=== PATIENT | female | born 1980 | race African-American/Black ===

== ENCOUNTER 2016-12-21 16:08 | Emergency (ER) | payer OTHER ==
[~2016-12-21] VITALS: Ht 162.6 cm; Wt 80.0 kg
[~2016-12-21 16:08] MED LIST: BENZ2 PO; DIVA250T8 PO; GLUCTAB PO; HALO1TAB PO; HYDR50TA94 PO; LACT20SO4 PO; MIRT15TA2 PO; ZYPR20TA PO
[2016-12-21 16:16] VITALS: BP 148/99; PULSE 130; RESP 20; TEMP 98.2; O2SAT 95
[2016-12-22] MEDS ORDERED: PROM6.256 PO (09:23)
[2016-12-22] MEDS ORDERED: GLUCTAB PO (13:12)
[2016-12-28] MEDS ORDERED: BENZ100 PO (12:33)
[2017-01-11] MEDS ORDERED: GUAI100S5 PO (08:14)
== END 2016-12-21 17:43 | disposition left against medical advice (07) ==
LOC: NED 16:08
DX: R06.00 Dyspnea, unspecified (principal); Z53.21 Procedure and treatment not carried out due to patient leaving prior to being seen by health care provider
CPT/HCPCS: 99281

== ENCOUNTER 2017-12-13 16:42 | Emergency (ER) | payer OTHER ==
[~2017-12-13 16:42] MED LIST changes: +ALBU0.08 NEB; +BENZ100 PO; +CLAR10CA3 PO; -DIVA250T8 PO; +FLUT1SPR5 EACH NARE; -HYDR50TA94 PO; -LACT20SO4 PO; +NEBULIZER1 MI1; +OCEA0.653 EACH NARE
[2017-12-13 16:43] VITALS: BP 162/92; PULSE 138; RESP 26; TEMP 97.8; O2SAT 98
--- NOTE | 2017-12-13 17:22 | RADRPT ---
EXAM DATE/TIME: 12/13/2017 17:12 [place] COMPARISON: No previous studies available for comparison. INDICATIONS : Cough. MEDICAL HISTORY : None. SURGICAL HISTORY : None. ENCOUNTER: Initial ACUITY: 1 week PAIN SCORE: 0/10 LOCATION: Bilateral chest FINDINGS: PA and lateral views of the chest demonstrate the lungs to be symmetrically aerated without evidence of mass, infiltrate or effusion. The cardiomediastinal contours are unremarkable. Osseous structure s are intact. CONCLUSION: 1. No acute cardiopulmonary findings identified. Carroll Garrett MD on December 13, 2017 at 17:19 Board Certified Radiologist. This report was verified electronically.
[2017-12-13] MEDS ORDERED: BENZ0.5T PO (19:24)
[2017-12-13] MEDS ORDERED: ZYPR20TA PO (19:24)
[2017-12-13] MEDS ORDERED: HALO5TAB PO (19:24)
[2017-12-13 19:31] LABS: BICARBONATE 22.6 MEQ/L (21.0-32.0); CALCIUM 9.2 MG/DL (8.5-10.1); CREATININE 1.05 MG/DL (0.50-1.00)
[2017-12-13 19:45] LABS: AUTOMATED NEUTROPHIL # 5.8 TH/MM3 (1.8-7.7); BASOPHIL % 0.5 % (0.0-2.0); EOSINOPHIL # 0.1 TH/MM3 (0-0.4); EOSINOPHIL % 0.8 % (0.0-4.0); HEMATOCRIT 38.4 % (35.0-46.0); HEMOGLOBIN 12.7 GM/DL (11.6-15.3); LYMPH % 18.4 % (9.0-44.0); LYMPHOCYTE # 1.5 TH/MM3 (1.0-4.8); MEAN CELL VOLUME 84.2 FL (80.0-100.0); MEAN CORPUSCULAR HEMOGLOBIN 27.9 PG (27.0-34.0); MEAN CORPUSCULAR HGB CONC 33.2 % (32.0-36.0); MEAN PLATELET VOLUME 8.1 FL (7.0-11.0); MONO % 8.4 % (0.0-8.0); MONOCYTE # 0.7 TH/MM3 (0-0.9); NEUT % 71.9 % (16.0-70.0); PLATELET COUNT 191 TH/MM3 (150-450); RED BLOOD COUNT 4.56 MIL/MM3 (4.00-5.30); RED CELL DISTRIBUTION WIDTH 12.5 % (11.6-17.2); WHITE BLOOD COUNT 8.1 TH/MM3 (4.0-11.0)
[2017-12-13] MEDS ORDERED: INSULIN HUMAN REGULAR 1,000 UNITS/10 ML VIAL SQ ONE (19:45)
--- NOTE | 2017-12-13 21:16 | PD ---
HPI . Colds/flu symptoms Chief Complaint: Cold / Flu Symptoms Time Seen by Provider: 19:17 Travel History International Travel<30 days: No Contact w/Intl Traveler<30days: No Traveled to known affect area: No History of Present Illness HPI 37-year-old female profound MR, presents with cold and flulike symptoms over the past several days, having slight cough, runny nose. No quantified fever. Patient is essentially nonverbal. History as per patient's sister who is her caregiver. Patient otherwise is acting normally today. [facility] Past Medical History Narrative Medical Past medical history reviewed Arthritis: No Asthma: No Autoimmune Disease: No Blood Disorders: No Bipolar Disorder: Yes Anxiety: Yes Depression: No Heart Rhythm Problems: No High Cholesterol: No Congestive Heart Failure: No COPD: No Cerebrovascular Accident: No Diabetes: Yes Patient Takes Glucophage: Yes Diminished Hearing: No GERD: No Glaucoma: No Hepatitis: No Hiatal Hernia: No Hypertension: No Kidney Stones: No Neurologic: Yes Psychiatric: Yes (SEVERLY RETARDED, PSYCOTIC EPISODES, AGRESSION) Immunizations Current: Yes Myocardial Infarction: No Renal Failure: No Schizophrenia: Yes Seizures: Yes Sleep Apnea: No Thyroid Disease: Yes Ulcer: No Influenza Vaccination: No ?: Not Past Surgical History Genitourinary Surgery: No Tonsillectomy: Yes Other Surgery: No Social History Alcohol Use: No Tobacco Use: No Substance Use: No Allergies-Medications (Allergen,Severity, Reaction): Coded Allergies: clonazepam (Unverified Allergy, Severe, 09/12/17) quetiapine (Unverified Allergy, Severe, 09/12/17) Reported Meds & Prescriptions Reported Meds & Active Scripts Active Glucophage XR (Metformin HCl) 500 Mg Veronica 500 Mg PO BIDAC With evening meal Reported Haloperidol 5 Mg Tab 5 Mg PO BID Zyprexa (Olanzapine) 20 Mg Tab 20 Mg PO BID Benztropine (Benztropine Mesylate) 0.5 Mg Tab 0.5 Mg PO BID Narrative Medication Allergies and medications reviewed Review of Systems ROS Limitations: Poor Historian Physical Exam Exam Limitations: Poor Historian Narrative GENERAL: Awake and alert, baseline profound MR nonverbal. Vital signs afebrile normal and stable. SKIN: Warm and dry. Color is normal no diaphoresis cyanosis or pallor HEAD: Atraumatic. Normocephalic. EYES: Pupils equal and round. No scleral icterus. No injection or drainage. ENT: No nasal bleeding or discharge. Mucous membranes pink and moist. No rhinitis, no oral lesions NECK: Trachea midline. No JVD. Supple full range of motion CARDIOVASCULAR: Regular rate and rhythm. No murmurs rubs or gallops RESPIRATORY: No accessory muscle use. Clear to auscultation. Breath sounds equal bilaterally. GASTROINTESTINAL: Abdomen soft, non-tender, nondistended. Hepatic and splenic margins not palpable. MUSCULOSKELETAL: Extremities without clubbing, cyanosis, or edema. No obvious deformities. NEUROLOGICAL: Awake and alert. No obvious focal deficits. Difficult exam secondary to patient's baseline MR PSYCHIATRIC: Normal for this patient's baseline as per patient's sister Data Data Last Documented VS Vital Signs Date Time Temp Pulse Resp B/P (MAP) Pulse Ox O2 Delivery O2 Flow Rate FiO2 12/13/17 16:43 97.8 138 26 162/92 (115) 98 Orders Orders Complete Blood Count With Diff (12/13/17 17:00) Basic Metabolic Panel (Bmp) (12/13/17 17:00) Electrocardiogram (12/13/17 ) Influenzae A/B Antigen (12/13/17 17:00) Chest, Pa & Lat (12/13/17 ) Insulin Human Regular Inj (Novolin R Inj (12/13/17 19:45) Labs Laboratory Tests Test 12/13/17 18:30 White Blood Count 8.1 TH/MM3 Red Blood Count 4.56 MIL/MM3 Hemoglobin 12.7 GM/DL Hematocrit 38.4 % Mean Corpuscular Volume 84.2 FL Mean Corpuscular Hemoglobin 27.9 PG Mean Corpuscular Hemoglobin Concent 33.2 % Red Cell Distribution Width 12.5 % Platelet Count 191 TH/MM3 Mean Platelet Volume 8.1 FL Neutrophils (%) (Auto) 71.9 % Lymphocytes (%) (Auto) 18.4 % Monocytes (%) (Auto) 8.4 % Eosinophils (%) (Auto) 0.8 % Basophils (%) (Auto) 0.5 % Neutrophils # (Auto) 5.8 TH/MM3 Lymphocytes # (Auto) 1.5 TH/MM3 Monocytes # (Auto) 0.7 TH/MM3 Eosinophils # (Auto) 0.1 TH/MM3 Basophils # (Auto) 0.0 TH/MM3 CBC Comment DIFF FINAL Differential Comment Blood Urea Nitrogen 8 MG/DL Creatinine 1.05 MG/DL Random Glucose 414 MG/DL Calcium Level 9.2 MG/DL Sodium Level 130 MEQ/L Potassium Level 4.3 MEQ/L Chloride Level 99 MEQ/L Carbon Dioxide Level 22.6 MEQ/L Anion Gap 8 MEQ/L Estimat Glomerular Filtration Rate 71 ML/MIN MDM Medical Decision Making Medical Screen Exam Complete: Yes Emergency Medical Condition: Yes Medical Record Reviewed: Yes Differential Diagnosis Upper respiratory infection resolved, influenza, hyperglycemia Narrative Course Patient's blood sugar noted to be elevated at 414. Patient treated with insulin subcutaneous patient has metformin at home, infrequently but sporadically has hyperglycemia. Patient has no documented fever. Influenza test negative. Care plan developed. Repeat fingerstick this evening before patient goes to bed as well as in the morning when patient wakes up. Patient has persistently elevated blood sugar, patient is welcome to return.. Regardless of results, patient's private physician should be contacted in the morning. Return for worsening Diagnosis Primary Impression: Hyperglycemia Patient Instructions: Diabetic Hyperglycemia (ED), General Instructions Additional Instructions: Repeat fingerstick blood sugar check this evening before going to bed, and in the morning when waking up. Follow-up with your doctor in the morning. Return for worsening Disposition: 01 DISCHARGE HOME Condition: Stable James Hopper MD Dec 13, 2017 21:16
--- NOTE | 2017-12-14 14:23 | EKG ---
Date Performed: 12/13/2017 Time Performed: 18:31:12 PTAGE: 37 years EKG: SINUS TACHYCARDIA MODERATE T-WAVE ABNORMALITY, CONSIDER ANTEROLATERAL ISCHEMIA MODERATE T-W AVE ABNORMALITY, CONSIDER INFERIOR ISCHEMIA ABNORMAL ECG Compared to PREVIOUS TRACING , the sinus tachycardia is new. There has been an increase in the inferi or/lateral ST-T wave changes. Clinical correlation is advised. PREVIOUS TRACIN12/01/2003 20.30 DOCTOR: Teresa Farah Interpretating Date/Time 12/14/2017 14:22:01
== END 2017-12-13 21:57 | disposition home or self-care (01) ==
LOC: NEPE 16:42
DX: E11.65 Type 2 diabetes mellitus with hyperglycemia (principal); R09.89 Other specified symptoms and signs involving the circulatory and respiratory systems; R05 Cough; R94.31 Abnormal electrocardiogram [ECG] [EKG]
CPT/HCPCS: 71046; 80048; 85025; 87804; 93005; 96372; 99285; J1815

== ENCOUNTER 2017-12-25 09:25 | Emergency (ER) | payer OTHER ==
[~2017-12-25 09:25] MED LIST changes: -ALBU0.08 NEB; +BENZ0.5T PO; -BENZ100 PO; -BENZ2 PO; -CLAR10CA3 PO; -FLUT1SPR5 EACH NARE; -HALO1TAB PO; +HALO5TAB PO; -MIRT15TA2 PO; -NEBULIZER1 MI1; -OCEA0.653 EACH NARE
[2017-12-25 09:27] VITALS: BP 159/85; PULSE 99; RESP 22; TEMP 98; O2SAT 100
[2017-12-25] MEDS ORDERED: DOXY100C PO (10:17)
--- NOTE | 2017-12-25 10:20 | PD ---
HPI Chief Complaint: Cold / Flu Symptoms Time Seen by Provider: 10:06 Travel History International Travel<30 days: No Contact w/Intl Traveler<30days: No Traveled to known affect area: No History of Present Illness HPI 37-year-old female with history of cerebral palsy, nonverbal, presents with her caregiver for evaluation of cough. Symptoms started 2 weeks ago. The cough is dry, associated with runny nose. Denies any fevers, sore throat. No other complaints at this time. She is not using any [id number] medication for symptom relief. PFSH Past Medical History Arthritis: No Asthma: No Autoimmune Disease: No Blood Disorders: No Bipolar Disorder: Yes Anxiety: Yes Depression: No Heart Rhythm Problems: No High Cholesterol: No Congestive Heart Failure: No COPD: No Cerebrovascular Accident: No Diabetes: Yes Diminished Hearing: No GERD: No Glaucoma: No Hepatitis: No Hiatal Hernia: No Hypertension: No Kidney Stones: No Neurologic: Yes Psychiatric: Yes (SEVERLY RETARDED, PSYCOTIC EPISODES, AGRESSION) Immunizations Current: Yes Myocardial Infarction: No Renal Failure: No Schizophrenia: Yes Seizures: Yes Sleep Apnea: No Thyroid Disease: Yes Ulcer: No Past Surgical History Genitourinary Surgery: No Tonsillectomy: Yes Other Surgery: No Social History Alcohol Use: No Tobacco Use: No Substance Use: No Allergies-Medications (Allergen,Severity, Reaction): Coded Allergies: clonazepam (Unverified Allergy, Severe, 09/12/17) quetiapine (Unverified Allergy, Severe, 09/12/17) Reported Meds & Prescriptions Reported Meds & Active Scripts Active Doxycycline Hyclate 100 Mg Cap 100 Mg PO BID Glucophage XR (Metformin HCl) 500 Mg Veronica 500 Mg PO BIDAC With evening meal Reported Haloperidol 5 Mg Tab 5 Mg PO BID Zyprexa (Olanzapine) 20 Mg Tab 20 Mg PO BID Benztropine (Benztropine Mesylate) 0.5 Mg Tab 0.5 Mg PO BID Review of Systems Except as stated in HPI: all other systems reviewed are Neg Physical Exam Narrative GENERAL: Well-developed well-nourished female in no acute distress SKIN: Warm and dry. HEAD: Atraumatic. Normocephalic. EYES: Pupils equal and round. No scleral icterus. No injection or drainage. ENT: No nasal bleeding or discharge. Mucous membranes pink and moist. NECK: Trachea midline. No JVD. CARDIOVASCULAR: Regular rate and rhythm. No murmur appreciated. RESPIRATORY: No accessory muscle use. Clear to auscultation. Breath sounds equal bilaterally. Data Data Last Documented VS Vital Signs Date Time Temp Pulse Resp B/P (MAP) Pulse Ox O2 Delivery O2 Flow Rate FiO2 12/25/17 09:27 98.0 99 22 159/85 (109) 100 Room Air Orders Orders Ed Discharge Order (12/25/17 10:17) [facility] Medical Decision Making Medical Screen Exam Complete: Yes Emergency Medical Condition: Yes Medical Record Reviewed: Yes Differential Diagnosis Pneumonia, bronchitis, sinusitis, influenza Narrative Course 37-year-old female presents with 2 weeks of cough and congestion. She appears well. Examination is consistent with bronchitis. Because of the duration of symptoms She is being discharged with doxycycline. Diagnosis Primary Impression: Bronchitis Additional Instructions: Medication as prescribed. Stay well hydrated and well-nourished. Follow-up with primary care physician. Return for any emergent medical conditions. Med/Other Pt SpecificInfo: Prescription(s) given Scripts Doxycycline Hyclate (Doxycycline Hyclate) 100 Mg Cap 100 MG PO BID for Infection, #20 CAP 0 Refills Prov: Cristi Urias MD 12/25/17 Disposition: 01 DISCHARGE HOME Condition: Stable Otilio Ott Dec 25, 2017 10:20
== END 2017-12-25 10:31 | disposition home or self-care (01) ==
LOC: NEPK 09:25
DX: J40 Bronchitis, not specified as acute or chronic (principal); G80.9 Cerebral palsy, unspecified; F31.9 Bipolar disorder, unspecified; E11.9 Type 2 diabetes mellitus without complications; F20.9 Schizophrenia, unspecified; R56.9 Unspecified convulsions; E07.9 Disorder of thyroid, unspecified; Z79.84 Long term (current) use of oral hypoglycemic drugs
CPT/HCPCS: 99283